=== PATIENT | male | born 1940 | race Caucasian/White ===

== ENCOUNTER 2020-05-10 07:15 | Day surgery (SDC) | payer OTHER ==
[~2020-05-10] VITALS: Ht 167.6 cm; Wt 64.0 kg
[~2020-05-10 07:15] MED LIST: SODIUM CHLORIDE 0.9% 1000ML 1,000 ML IV ONE
[2020-05-10 08:03] VITALS: BP 149/84
[2020-05-10] MEDS ORDERED: FLUT1AER IH (08:38)
[2020-05-10] MEDS ORDERED: AEC81 PO (08:38)
[2020-05-10] MEDS ORDERED: UBID50TA3 PO (08:38)
[2020-05-10] MEDS ORDERED: PRAV40TA3 PO (08:38)
[2020-05-10] MEDS ORDERED: MELA5TAB14 PO (08:38)
[2020-05-10] MEDS ORDERED: CLOP75TA32 PO (08:38)
[2020-05-10] MEDS ORDERED: CYAN250014 PO (08:38)
[2020-05-10] MEDS ORDERED: AMLO-258 PO (08:38)
[2020-05-10] MEDS ORDERED: METO-408 PO (08:38)
[2020-05-10] MEDS ORDERED: ISOS30TA6 PO (08:38)
[2020-05-10] MEDS ORDERED: PROPOFOL 10 MG/ML 20ML VIAL IV ONE (10:25)
[2020-05-10] MEDS ORDERED: EPHEDRINE SULFATE 50 MG/ML AMPULE ONE (10:38)
[2020-05-10 10:55] VITALS: BP 106/73
[2020-05-10 11:12] VITALS: BP 97/64
[2020-05-10 11:23] VITALS: BP 105/67
== END 2020-05-10 11:45 | disposition home or self-care (01) ==
LOC: DAH 07:15 → ENDO 07:15
PROVIDERS: ATTEND Internal Medicine Gastroenterology
DX: R93.3 Abnormal findings on diagnostic imaging of other parts of digestive tract (principal); R63.4 Abnormal weight loss; I10 Essential (primary) hypertension; Z86.73 Personal history of transient ischemic attack (TIA), and cerebral infarction without residual deficits; Z86.010 Personal history of colon polyps; K22.8 Other specified diseases of esophagus; B18.2 Chronic viral hepatitis C; C61 Malignant neoplasm of prostate; Z79.899 Other long term (current) drug therapy; Z20.828 Contact with and (suspected) exposure to other viral communicable diseases
CPT/HCPCS: 43237; 93005; A4215; A4221; A4222; A4223; A4606; A4620; A4663; J2704; J3490; J7030; U0003; 43259